=== PATIENT | male | born 1995 ===

== ENCOUNTER 2020-02-17 18:01 | Emergency (ER) | payer OTHER ==
[~2020-02-17] VITALS: Ht 177.8 cm; Wt 72.8 kg
[2020-02-17 18:04] VITALS: BP 126/74
[2020-02-17] MEDS ORDERED: KETOROLAC 30 MG/1 ML IM ONE (18:30)
[2020-02-17] MEDS ORDERED: KETOROLAC 30 MG/1 ML ONE (18:40)
== END 2020-02-17 19:13 | disposition home or self-care (01) ==
LOC: ED 18:31
DX: R07.89 Other chest pain (principal)
CPT/HCPCS: 71045; 93005; 96372; 99283; J1885